=== PATIENT | male | born 1945 | race Caucasian/White ===

== ENCOUNTER 2017-06-05 18:03 | Emergency (ER) | payer OTHER ==
[2017-06-05 18:12] VITALS: PULSE 89; RESP 16; TEMP 97.9
--- NOTE | 2017-06-05 19:01 | EDPHY ---
H & P Time Seen by Provider: 06/05/17 18:25 HPI/ROS: CHIEF COMPLAINT: Left leg pain/swelling HISTORY OF PRESENT ILLNESS: This patient is an anticoagulated (Xarelto) 71 y/o male with history of hypertension and atrial fibrillation complaining of pain and swelling in his left lower extremity onset Saturday. Initially, he felt he had a cramp in his leg. He developed swelling and worsening pain in that area over the last three days. Today, his pain is slightly relieved but his leg remains swollen with some associated redness. He denies headache, chest pain, shortness of breath, or other associated symptoms. He denies prior history of clotting. REVIEW OF SYSTEMS: A 10 point review of systems was performed and is negative with the exception of the elements mentioned in the history of present illness. Past Medical/Surgical History: 1. Hypertension 2. Atrial fibrillation Social History: . Lives in [place]. Retired. Nonsmoker. PCP Dr. Luna. Smoking Status: Never smoked Physical Exam: General Appearance: Alert, no distress Eyes: Pupils equal and round, no conjunctival pallor or injection ENT, Mouth: Mucous membranes moist Neck: Normal inspection Respiratory: Lungs are clear to auscultation Cardiovascular: Regular rate and rhythm Gastrointestinal: Abdomen is soft and non- tender Neurological: A&O, nonfocal, normal gait Skin: Warm and dry, no rash Extremities: Diffuse swelling, faint erythema and warmth to anterior aspect of LLE below the knee. 2+ dorsalis pedis pulse. Psychiatric: Mood and affect normal Constitutional: Initial Vital Signs Temperature (C) 36.6 C 06/05/17 18:09 Heart Rate 89 06/05/17 18:09 Respiratory Rate 16 06/05/17 18:09 Blood Pressure 155/109 H 06/05/17 18:09 O2 Sat (%) 95 06/05/17 18:09 O2 Delivery Mode Room Air Allergies/Adverse Reactions: Penicillins Allergy (Verified 01/18/12 10:13) Rash Home Medications: Medication Instructions Recorded Hydrochlorothiazide [HCTZ (*)] 25 mg PO 09/14/10 Aspirin [Aspirin 81mg (OTC)] 81 mg PO DAILY 01/18/12 Atenolol [Tenormin 100 mg (RX)] 100 mg PO DAILY 01/18/12 Dyasterude 0.5mgdaily 01/18/12 Indomethacin 1 cap PO TID #9 cap 01/18/12 Rivaroxaban [Xarelto] 20 mg PO 01/18/12 Cephalexin [Keflex (*)] 500 mg PO TID #30 cap 06/05/17 Medical Decision Making - Diagnostics Imaging Results: Imaging Impressions Extremity Venous Study 06/05/17 18:25 Impression: There is no sonographic evidence of deep or superficial vein thrombosis in the left lower extremity. Findings were discussed with PERLA GERMAIN MD at 19:50, on 06/05/2017. Imaging: Discussed imaging studies w/ weight caller Radiologist ED Course/Re-evaluation: Anticoagulated 71 y/o male presents with four day history of LLE pain and swelling. Exam reveals diffuse swelling, faint erythema and warmth to anterior aspect of LLE below the knee. 2+ dorsalis pedis pulse. Plan for US LLE to r/o DVT. 19:[address] Rosas, radiologist. US LLE negative for DVT. Reassessed patient. Discussed US results. Likely muscular strain with bleeding within the muscle and resultant swelling. Concern for cellulitis b/c of faint erythema. Plan to d/c home in good condition with prescription for Keflex. He will follow up with his PCP, Dr. Luna, this week. Return precautinos discussed. The patient is comfortable with this plan. Differential Diagnosis: Differential diagnosis includes though it is not limited to DVT, cellulitis, osteomyelitis, tendon disruption, neurovascular compromise. Departure - Departure Disposition: Home, Routine, Self-Care Clinical Impression: Cellulitis of left lower extremity Condition: Good Instructions: Cellulitis (ED), Muscle Strain (ED) Additional Instructions: 1. Follow up with Dr. Luna on Saturday. 2. Take Keflex as prescribed. Keep your leg elevated whenever possible. 3. Return to the emergency department for increased redness, warmth, swelling, or discharge from your leg or if you develop fever, vomiting, chest pain, shortness of breath, or other worsening of condition. Referrals: Bernardino Luna MD [Primary Care Provider] - As per Instructions Prescriptions: Cephalexin [Keflex (*)] 500 mg PO TID #30 cap Report Scribed for: Perla Germain Report Scribed by: Avani Mera Date of Report: 06/05/17 Time of Report: 19:01 Physician Review and Approval Statement: 06/05/17 19:01 Portions of this note were transcribed by a medical billing associate. I personally performed a history, physical exam, medical decision making, and confirmed accuracy of information the transcribed note.
[2017-06-05 20:10] VITALS: BP 160/114; O2SAT 94
== END 2017-06-05 20:08 | disposition home or self-care (01) ==
DX: L03.116 Cellulitis of left lower limb (principal); I10 Essential (primary) hypertension; Z79.82 Long term (current) use of aspirin

== ENCOUNTER 2018-08-21 06:01 | Emergency (ER) | payer OTHER ==
[2018-08-21 06:07] VITALS: BP 129/83
--- NOTE | 2018-08-21 06:20 | EDPHY ---
H & P Stated Complaint: L upper thigh/calf swelling x2days, pain when moving Time Seen by Provider: 08/21/18 06:08 HPI/ROS: Chief Complaint: Left posterior thigh pain HPI: 73-year-old male with a history of atrial fibrillation, on Xarelto, has had 2 days of pain in the back of his left thigh. Patient noted a firm lump in that area and concerned about a possible blood clot. He has been completely compliant with his usual Xarelto. He does state that he exercises regularly and may have pulled a muscle in that area. No circumferential swelling. No lower leg swelling. No numbness or weakness. No discoloration. Does not feel cold. He is ambulating without difficulty. No chest pain shortness of breath or palpitations. ROS: 10 systems were reviewed and were negative except those elements noted in the HPI. PMH: Hypertension, atrial fibrillation, on Xarelto Social History: No smoking, no alcohol, no recreational drug use Family History: non-contributory Physical Exam: Gen: Awake, Alert, No Distress HEENT: Nose: no rhinorrhea Eyes: PERRLA, EOMI Mouth: Moist mucosa Neck: Supple, no JVD Chest: nontender, lungs clear to auscultation Heart: S1, S2 normal, no murmur Abd: Soft, non-tender, no guarding Back: no CVA tenderness, no midline tenderness Ext: no edema, patient has a palpable localized hematoma in his posterior hamstring muscles approximately 10 x 5 cm. Is mildly tender to the touch. There is no surrounding edema. There is no overlying erythema. The remainder of his leg is normal. 2+ dorsalis pedis pulses. Sensations intact distally. Capillary refills less than 2 sec. Skin: no rash Neuro: CN II-XII intact, Sensation grossly intact, Strength 5/5 in bilateral upper and lower extremities - Personal History Current Tetanus Diphtheria and Acellular Pertussis (TDAP): Yes - Medical/Surgical History Hx Asthma: No Hx Chronic Respiratory Disease: No Hx Diabetes: No Hx Cardiac Disease: Yes Hx Renal Disease: No Hx Cirrhosis: No Hx Alcoholism: No Hx HIV/AIDS: No Hx Splenectomy or Spleen Trauma: No Other PMH: HTN. A-fib. - Social History Smoking Status: Never smoked Constitutional: Initial Vital Signs Temperature (C) 36.8 C 08/21/18 06:05 Heart Rate 69 08/21/18 06:05 Respiratory Rate 17 08/21/18 06:05 Blood Pressure 129/83 H 08/21/18 06:05 O2 Sat (%) 95 08/21/18 06:05 O2 Delivery Mode Room Air Allergies/Adverse Reactions: Penicillins Allergy (Verified 08/21/18 06:03) Rash Home Medications: Medication Instructions Recorded Hydrochlorothiazide [HCTZ (*)] 25 mg PO 09/14/10 Aspirin [Aspirin 81mg (OTC)] 81 mg PO DAILY 01/18/12 Atenolol [Tenormin 100 mg (RX)] 100 mg PO DAILY 01/18/12 Dyasterude 0.5mgdaily 01/18/12 Rivaroxaban [Xarelto] 20 mg PO 01/18/12 Medical Decision Making ED Course/Re-evaluation: 73-year-old male presenting with a left posterior thigh hematoma likely secondary to a mild muscle tear and his Xarelto. He has no clinical findings suggestive of a DVT. There is no circumferential swelling. There is no swelling below the knee. He has normal perfusion. He has no risk factors for DVT and is anticoagulated making this very unlikely. Patient has been reassured. Vital signs are normal. Will discharge with ice, acetaminophen, follow up his physician in 4-5 days for recheck. Departure - Departure Disposition: Home, Routine, Self-Care Clinical Impression: Hematoma Condition: Good Instructions: Hematoma (ED) Additional Instructions: You may apply ice to the affected area. May take Tylenol as needed for pain. Follow up with primary care physician in 4-5 days for further evaluation. Return to the emergency department for increasing swelling, redness, worsening pain, chest pain, shortness of breath, or any other concerns. Referrals: Bernardino Luna MD [Primary Care Provider] - As per Instructions
== END 2018-08-21 06:30 | disposition home or self-care (01) ==
DX: M79.81 Nontraumatic hematoma of soft tissue (principal); I48.91 Unspecified atrial fibrillation; I10 Essential (primary) hypertension; Z79.01 Long term (current) use of anticoagulants

== ENCOUNTER 2018-08-30 21:19 | Observation (INO) | payer OTHER ==
[2018-08-30] MEDS ORDERED: NS 1,000 ML IV ONE (21:42)
--- NOTE | 2018-08-30 21:43 | EDPHY ---
H & P Stated Complaint: near syncope-head lac Source: Patient - Personal History Current Tetanus Diphtheria and Acellular Pertussis (TDAP): Yes - Medical/Surgical History Hx Asthma: No Hx Chronic Respiratory Disease: No Hx Diabetes: No Hx Cardiac Disease: Yes Hx Renal Disease: No Hx Cirrhosis: No Hx Alcoholism: No Hx HIV/AIDS: No Hx Splenectomy or Spleen Trauma: No Other PMH: HTN. A-fib. - Social History Smoking Status: Never smoked Time Seen by Provider: 08/30/18 21:42 HPI/ROS: HPI CHIEF COMPLAINT: Syncope. HISTORY OF PRESENT ILLNESS: This patient is a 73-year-old male, he has a history of AFib on Xarelto, hypertension and BPH, he presents emergency room after he had a syncopal episode sustaining a fall with a left eyebrow laceration. Patient states he was stand at his bathroom counter sorting his pills. He all the sudden got lightheaded. Denies any chest pain or shortness of breath denies pleuritic pain. States he felt very lightheaded like he is going to pass out he sat down on a stool. He then had a syncopal episode falling forward striking his head on the ground. Positive LOC. He arrives to the emergency room alert and oriented x4, GCS 15. Denies any complaints at this time. Past Medical History: AFib on Xarelto, hypertension, BPH. Past Surgical History: Denies recent surgical history Social History: Denies daily drugs, alcohol daily tobacco, did have 1 glass of wine tonight. Family History: Noncontributory ROS REVIEW OF SYSTEMS: 10 Systems were reviewed and negative with the exception of the elements mentioned in the history of present illness. Exam Constitutional elderly, nontoxic triage nursing summary reviewed, vital signs reviewed, awake/alert. Eyes normal conjunctivae and sclera, EOMI, PERRLA. HENT head and neck: Left eyebrow laceration 3 cm, otherwise atraumatic on exam , no midline cervical spine pain or step-offs or crepitus, moist mucus membranes , no epistaxis, neck supple/ no meningismus, no raccoon eyes. Respiratory clear to auscultation bilaterally, normal breath sounds, no respiratory distress, no wheezing. Cardiovascular rate normal, regular rhythm, no murmur, no edema, distal pulses normal. Gastrointestinal soft, non-tender, no rebound, no guarding, normal bowel sounds, no distension, no pulsatile mass. Genitourinary no CVA tenderness. Musculoskeletal no midline vertebral tenderness, full range of motion, no calf swelling, no tenderness of extremities, no meningismus, good pulses, neurovascularly intact. Skin pink, warm, & dry, no rash, skin atraumatic. Neurologic awake, alert and oriented x 3, AAOx3, moves all 4 extremities equally, motor intact, sensory intact, CN II-XII intact, normal cerebellar, normal vision, normal speech. Psychiatric normal mood/affect. Heme/Lymph/Immune no lymphadenopathy. Differential Diagnosis: Includes but is not limited to in a particular order vasovagal syncope, orthostatic syncope, dehydration, electrolyte disturbance, cardiac arrhythmia, ACS, PE Medical Decision Making: Plan for this patient IV establishment IV fluid bolus , EKG, troponin, chest x-ray, CT scan head without contrast due to trauma and head laceration. Re-evaluation: EKG interpretation by me on record in [employer] system. Impression time of EKG 2241 AFib rate of 66, abnormal T-wave inversions in V4 V5 V6. When I compare this to his old EKG dated 07/04/2010 similar all in morphology. T-waves are previously seen. Chest x-ray one view: Cardiomegaly. Otherwise negative acute intrathoracic pathology interpreted by myself. CT scan head without contrast negative for acute traumatic injury called to me by Dr. Webb. 1210: Patient has a positive D-dimer in the setting of syncope will proceed with CT angiogram of the chest rule out PE. Additionally the patient had syncope with lightheadedness sustaining a head laceration be admitted overnight for syncope. I will ask the hospitalist service to admit. 1214: Updated patient on results. He has a positive D-dimer. He agrees for CT angiogram of the chest in the setting of positive D-dimer and syncope. The patient's EKG is stable from his previous EKGs. Additionally troponin negative. He does not have any chest pain. Patient agrees for hospital admission for syncope. 1217AM: Spoke with hospalist service. Dr. Penny Agrees to admit. CT angiogram of the chest obtained due to positive D-dimer and syncope, this was faxed me by direct Radiology at 12:52 a.m. This shows no pulmonary embolism Cardiomegaly with ill-defined hypodensity a left atrial appendage may represent not opacified blood versus less likely thrombus. Left upper lobe 7 mm solid pulmonary nodule recommend follow-up CT scan 3-6 months Multiple hypodensities in the liver that are indeterminate but likely represent simple cyst. (Yahir Botello) Constitutional: Initial Vital Signs Temperature (C) 36.4 C 08/30/18 21:29 Heart Rate 83 08/30/18 21:29 Respiratory Rate 16 08/30/18 21:29 Blood Pressure 99/68 L 08/30/18 21:29 O2 Sat (%) 96 08/30/18 21:29 O2 Delivery Mode Room Air Allergies/Adverse Reactions: Penicillins Allergy (Verified 08/30/18 21:27) Rash Home Medications: Medication Instructions Recorded Hydrochlorothiazide [HCTZ (*)] 25 mg PO DAILY@09/14/10 Aspirin [Aspirin 81mg (OTC)] 81 mg PO DAILY@01/18/12 Atenolol [Tenormin 100 mg (RX)] 100 mg PO DAILY@01/18/12 Dutasteride [Avodart 0.5 MG (*)] 0.5 mg PO DAILY@01/18/12 Rivaroxaban [Xarelto] 20 mg PO DAILY@01/18/12 Atorvastatin Calcium [Lipitor 40 40 mg PO DAILY@08/30/18 mg (*)] Medical Decision Making - Diagnostics Imaging Results: Imaging Impressions Chest/Thorax CTA 08/31/18 00:09 Impression: 1. No evidence of pulmonary embolic disease. 2. Mild dilatation of the a sending aorta. 3. Cardiac enlargement as well as prominence of the left atrial appendage which equivocally may contain thrombus. This could be further assessed with echocardiography as clinically directed. 4. See above report for additional findings. The study was performed as an emergency on-call case and a preliminary report was conveyed to the Emergency Department. The final interpretation is concordant with the original communication. [facility] Procedures: Procedure: Laceration repair with tissue adhesive At the e request and supervision of Dr. Yahir Botello wound closure was performed. Verbal consent was obtained from the patient. The 1.5 cm laceration on the left lateral eyebrow. The wound was scrubbed and explored to its base with a gloved finger. No foreign body seen, no foreign bodies palpated. There were no deep structures involved. The wound was repaired with tissue adhesive. The procedure was performed by myself. Patient has been informed that scarring will occur, although efforts have been made to minimize this. (Suyapa Vo) - Data Points Laboratory Results: Laboratory Results 08/30/18 21:56 08/30/18 21:56 Medications Given: Aspirin (Aspirin) 81 mg PO DAILY@19 [facility] Stop: 02/27/19 18:59 Last Admin: 08/31/18 19:56 Dose: 81 mg Atenolol (Tenormin) 100 mg PO DAILY@19 [facility] Stop: 02/27/19 18:59 Last Admin: 08/31/18 19:56 Dose: 100 mg Atorvastatin Calcium (Lipitor) 40 mg PO DAILY@19 [facility] Stop: 02/27/19 18:59 Last Admin: 08/31/18 19:56 Dose: 40 mg Dutasteride (Avodart) 0.5 mg PO DAILY@19 [facility] Stop: 02/27/19 18:59 Last Admin: 08/31/18 19:56 Dose: 0.5 mg Hydrochlorothiazide (Hydrochlorothiazide) 25 mg PO DAILY@19 [facility] Stop: 02/27/19 18:59 Last Admin: 08/31/18 19:56 Dose: 25 mg Rivaroxaban (Xarelto) 20 mg PO DAILY@19 [facility] Stop: 02/27/19 18:59 Last Admin: 08/31/18 19:56 Dose: 20 mg Discontinued Medications Sodium Chloride (Ns) 1,000 mls @ 0 mls/hr IV EDNOW ONE; Wide Open PRN Reason: Protocol Stop: 08/30/18 21:43 Last Admin: 08/30/18 22:05 Dose: 1,000 mls Point of Care Test Results: Chemistry 08/30/18 21:54 POC Troponin I 0.01 ng/mL ng/mL (0.00-0.08) Departure - Departure Disposition: [facility] Acute Clinical Impression: Pulmonary nodule Syncope Qualifiers: Syncope type: unspecified Qualified Code(s): R55 - Syncope and collapse Laceration of head Qualifiers: Encounter type: initial encounter Location of open wound of head: periocular area Foreign body presence: without foreign body Laterality: left Qualified Code (s): S01.112A - Laceration without foreign body of left eyelid and periocular area, initial encounter Condition: Fair
[2018-08-30 22:03] LABS: PLATELET COUNT 203 10^3/uL (150-400)
[2018-08-30 22:12] LABS: INR 1.64 (0.83-1.16); PROTIME(PATIENT) 18.7 SEC (12.0-15.0)
[2018-08-31] MEDS ORDERED: IOPAMIDOL (ISOVUE 370) 100 ML BTL IV ONE (00:13)
[2018-08-31] MEDS ORDERED: ONDANSETRON DISINTEGRATING 4 MG TAB PO PRN (00:17)
[2018-08-31] MEDS ORDERED: ACETAMINOPHEN 325 MG TAB PO PRN (00:17)
[2018-08-31] MEDS ORDERED: ONDANSETRON 4 MG/2 ML VIAL IVP PRN (00:17)
--- NOTE | 2018-08-31 04:14 | PDGENHP ---
History and Physical - Chief Complaint Syncope - History of Present Illness 73 yo M w/ hx of CAD and AF presents after syncopal event. The patient was standing in the bathroom after having a large meal counting out his pills for the week. He felt a bit lightheaded and shortly after suffered a syncopal episode, hitting his head. He is no Xarelto for anticoagulation. He denies chest pain, SOB, or palpitations. He returned to baseline mental status quickly and tried to go to bed. However, once his heard of the event she convinced him to go to the ED for evaluation. In the ED his initial evaluation is mostly unremarkable aside from rate controlled Afib. He is now asymptomatic. CTPE was negative for PE but did demonstrates density in the LA of unclear significance. Case discussed with ED physician Marti; records reviewed and summarized above. History Information - Allergies/Home Medication List Allergies/Adverse Reactions: Penicillins Allergy (Verified 08/30/18 21:27) Rash Home Medications: Hydrochlorothiazide [HCTZ (*)] 25 mg PO 09/14/10 [Last Taken Unknown] Aspirin [Aspirin 81mg (OTC)] 81 mg PO DAILY 01/18/12 [Last Taken Unknown] Atenolol [Tenormin 100 mg (RX)] 100 mg PO DAILY 01/18/12 [Last Taken Unknown] Dyasterude 0.5mgdaily 01/18/12 [Last Taken Unknown] Rivaroxaban [Xarelto] 20 mg PO 01/18/12 [Last Taken Unknown] Statin 08/30/18 [Last Taken Unknown] I have personally reviewed and updated: family history, medical history - Past Medical History atrial fibrillation, coronary artery disease - Surgical History Reports: coronary stent - Family History Additional family history: Parents - Social History Smoking Status: Never smoked Review of Systems Review of Systems: ROS: 10pt was reviewed & negative except for what was stated in HPI & below Physical Exam Physical Exam: Temp Pulse Resp BP Pulse Ox 36.6 C 78 18 137/93 H 98 08/31/18 01:33 08/31/18 01:33 08/31/18 01:33 08/31/18 01:33 08/31/18 01:33 Constitutional: no apparent distress, not in pain Eyes: PERRL, EOMI Ears, Nose, Mouth, Throat: moist mucous membranes, no oral mucosal ulcers Cardiovascular: no murmur, rub, or gallop, irregularly irregular Respiratory: no respiratory distress, clear to auscultation Gastrointestinal: normoactive bowel sounds, soft, non-tender abdomen Skin: warm, normal color, other (Frontal laceration) Musculoskeletal: full muscle strength, no muscle tenderness Neurologic: AAOx3, CN II-XII Intact Psychiatric: interacting appropriately, not anxious Lab Data & Imaging Review 08/31/18 04:08 08/31/18 04:08 WBC 4.77 10^3/uL (3.80-9.50) 08/30/18 21:56 RBC 4.86 10^6/uL (4.40-6.38) 08/30/18 21:56 Hgb 14.2 g/dL (13.7-17.5) 08/30/18 21:56 Hct 42.5 % (40.0-51.0) 08/30/18 21:56 MCV 87.4 fL (81.5-99.8) 08/30/18 21:56 MCH 29.2 pg (27.9-34.1) 08/30/18 21:56 MCHC 33.4 g/dL (32.4-36.7) 08/30/18 21:56 RDW 14.9 % (11.5-15.2) 08/30/18 21:56 Plt Count 203 10^3/uL (150-400) 08/30/18 21:56 MPV 10.2 fL (8.7-11.7) 08/30/18 21:56 Neut % (Auto) 68.5 % (39.3-74.2) 08/30/18 21:56 Lymph % (Auto) 18.0 % (15.0-45.0) 08/30/18 21:56 Grand % (Auto) 9.6 % (4.5-13.0) 08/30/18 21:56 Eos % (Auto) 2.9 % (0.6-7.6) 08/30/18 21:56 Baso % (Auto) 0.6 % (0.3-1.7) 08/30/18 21:56 Nucleat RBC Rel Count 0.0 % (0.0-0.2) 08/30/18 21:56 Absolute Neuts (auto) 3.26 10^3/uL (1.70-6.50) 08/30/18 21:56 Absolute Lymphs (auto) 0.86 10^3/uL (1.00-3.00) L 08/30/18 21:56 Absolute Monos (auto) 0.46 10^3/uL (0.30-0.80) 08/30/18 21:56 Absolute Eos (auto) 0.14 10^3/uL (0.03-0.40) 08/30/18 21:56 Absolute Basos (auto) 0.03 10^3/uL (0.02-0.10) 08/30/18 21:56 Absolute Nucleated RBC 0.00 10^3/uL (0-0.01) 08/30/18 21:56 Immature Gran % 0.4 % (0.0-1.1) 08/30/18 21:56 Immature Gran # 0.02 10^3/uL (0.00-0.10) 08/30/18 21:56 PT 18.7 SEC (12.0-15.0) H 08/30/18 21:56 INR 1.64 (0.83-1.16) H 08/30/18 21:56 APTT 34.4 SEC (23.0-38.0) 08/30/18 21:56 D-Dimer 0.64 ug/mLFEU (0.00-0.50) H 08/30/18 21:56 Sodium 138 mEq/L (135-145) 08/30/18 21:56 Potassium 4.0 mEq/L (3.5-5.2) 08/30/18 21:56 Chloride 102 mEq/L (97-110) 08/30/18 21:56 Carbon Dioxide 26 mEq/l (22-31) 08/30/18 21:56 Anion Gap 10 mEq/L (6-14) 08/30/18 21:56 BUN 21 mg/dL (7-23) 08/30/18 21:56 Creatinine 1.0 mg/dL (0.7-1.3) 08/30/18 21:56 Estimated GFR > 60 08/30/18 21:56 Glucose 118 mg/dL (70-100) H 08/30/18 21:56 Calcium 9.2 mg/dL (8.5-10.4) 08/30/18 21:56 Magnesium 1.9 mg/dL (1.6-2.3) 08/30/18 21:56 POC Troponin I 0.01 ng/mL (0.00-0.08) 08/30/18 21:54 NT-Pro-B Natriuret Pep 1360 pg/mL (0-450) H 08/30/18 21:56 Imaging Review: Imaging Impressions Chest X-Ray 08/30/18 21:43 Impression: 1. Cardiomegaly may reflect low-grade congestive failure without ibis pulmonary edema. 2. See above report for additional findings. Head CT 08/30/18 21:50 Impression: 1. Negative for post traumatic hemorrhage. 2. Elderly brain with atrophy and probable white matter small vessel disease. 3. See above report for additional findings. Results called and discussed with Yahir Botello MD on 08/30/2018 at 23:46. Visualized and Interpreted EKG results: Yes EKG Interpretation: Positive for: other (Atrial fibrillation), T waves inversion (Lateral leads) Assessment & Plan Assessment: 73 yo M w/ hx of AF and CAD presents after syncopal event. Plan: 1. Syncope - Unclear etiology; possibly vasovagal after eating a large meal. He denies chest pain, SOB, or palpitations. CTPE negative for PE but does demonstrate density in LA; unclear if this is related. - Observe in PCU - Monitor on telemetry - Check orthostatic VS - Will obtain TTE 2. LA hypodensity - May represent thrombus although patient is anticoagulated with Xarelto for history of AF. No focal neurologic findings on history or exam. - TTE ordered 3. AF - On atenolol and Xarelto as an outpatient. - Continue home medications pending reconciliation 4. CAD - S/p stent to LAD in 2010. - Continue home medications Diet - Regular Code - Full Ppx - Xarelto Dispo - Admit under observation status
[2018-08-31 04:32] LABS: PLATELET COUNT 187 10^3/uL (150-400)
--- NOTE | 2018-08-31 12:07 | ASMTCMCOM ---
CM Note CM Note Notes: Pt is a 73 yo M who presented after a syncopal episode at home. Pt care discussed in rounds, pt has echo pending. Dr West is pt's financial analysis advisor and is consulted. Discharge needs TBD at this time. CM available. Date Signed: 08/31/2018 12:06 PM Electronically Signed By:TRACI Pires
--- NOTE | 2018-08-31 15:04 | HOSPPROG ---
Hospitalist Progress Note Assessment/Plan: 73 yo M w/ hx of AF and CAD presents after syncopal event. Plan: 1. Syncope - Unclear etiology; possibly vasovagal after eating a large meal. He denies chest pain, SOB, or palpitations. CTPE negative for PE but does demonstrate density in LA; unclear if this is related. - Observe in PCU - Monitor on telemetry - Check orthostatic VS - Will obtain TTE - Consulted Cardiology, Dr. Pena, his primary drop forge operator, this AM for evaluation, set up for 30 day monitor after discharge 2. LA hypodensity - May represent thrombus although patient is anticoagulated with Xarelto for history of AF. No focal neurologic findings on history or exam. - TTE ordered 3. AF - On atenolol and Xarelto as an outpatient. - Continue home medications 4. CAD - S/p stent to LAD in 2010. - Continue home medications Diet - Regular Code - Full Ppx - Xarelto Dispo - Admit under observation status Subjective: Patient reports some LH this morning after breakfast Objective: Vital Signs Temp Pulse Resp BP Pulse Ox 36.7 C 76 16 108/76 96 08/31/18 11:34 08/31/18 11:34 08/31/18 11:34 08/31/18 11:34 08/31/18 11:34 Laboratory Results 08/31/18 04:08 08/31/18 04:08 08/30/18 08/31/18 09/01/18 04:59 05:59 05:59 Intake Total Balance PT 18.7 SEC (12.0-15.0) H 08/30/18 21:56 INR 1.64 (0.83-1.16) H 08/30/18 21:56 - Physical Exam Constitutional: no apparent distress Eyes: PERRL Ears, Nose, Mouth, Throat: moist mucous membranes Cardiovascular: irregularly irregular Respiratory: no respiratory distress Gastrointestinal: normoactive bowel sounds Musculoskeletal: full muscle strength Neurologic: AAOx3 Psychiatric: interacting appropriately ICD10 Worksheet Patient Problems: Problems Problem Status Onset Laceration of head Acute Pulmonary nodule Acute Syncope Acute
--- NOTE | 2018-08-31 18:31 | ECHO ---
[email or web address] [address] [address] Main: [phone] Echocardiography Examination Transthoracic Name: OPAL ALVAREZ MR#: [id number] Study Date: 08/31/2018 Study Time: 01:06 PM Date of : 1945 Age: 73 year(s) Height: 180.3 cm (71 in.) Weight: 86.18 kg (190 lb.) BSA: 2.06 m2 Gender: Male Examination: Indication: Syncope/question LA thrombus Image Quality: Adequate Contrast: Requested by: ?? BP: 108 mmHg/76 mmHg Heart Rate: Rhythm: Indication: Syncope/question LA thrombus Procedure Staff Referring Physician: Quality Control Tester: Gita Avila RDCS Reading Physician: Sammy Pena MD Requesting Provider: Indication: Syncope/question LA thrombus Measurements Chambers AV/MV Label Value Normal Value Label Value Normal Value EF lower range (%) 60 % AV PGmean 3 mmHg EF upper range (%) 65 % MV A Vmax 0.2 m/s IVSd, 2D 1.3 cm (0.6cm - 1.1cm) MV E' lateral 0.1 m/s LVDd, 2D 3.9 cm (4.2cm - 5.9cm) MV E' mean 0.09 m/s LVDs, 2D 2.6 cm (2.1cm - 4cm) MV E' septal 0.08 m/s LVEF, 2D 62 % (54% - 74%) MV E Vmax 0.95 m/s LVEF, BP 74 % (55% - 70%) MV E/A 4.75 LVEF, MOD2 80 % (55% - 70%) MV E/E' lateral 10 LVEF, MOD4 68 % (55% - 70%) MV E/E' mean 10.56 LVPWd, 2D 1.3 cm (0.6cm - 1cm) MV E/E' septal 12.7 (0.45 - 1.25) LA Area, A2C 41.6 cm2 (0cm2 - 20cm2) TV/PV LA Volume, A2C 174 ml (18ml - 58ml) Label Value Normal Value LADs, 2D 5.2 cm (3cm - 4cm) RA Pressure 5 mmHg Additional Vessels RVSP 36 mmHg Label Value Normal Value TR Pmax 31 mmHg AoAsc 4.3 cm TR Vmax 2.8 m/s AoRoot, MM 4.1 cm (2.2cm - 3.7cm) IVC 2 cm (1.2cm - 2.3cm) Patient: OPAL ALVAREZ Study Date: 08/31/2018 Page 1 of 3 01:06 PM Conclusions Left ventricular systolic ejection fraction was normal (60-65%) Mild concentric LVH was noted Patient was in atrial fib/flutter over course of this study RV size and function were normal Severe LAE with mod/severe VENU Mild MR with mild MAC Trileaflet aortic valve with mild insufficiency Mild TR with RVSP of 35-40 mm Hg Mild PI Mild dilation of the ascending aorta (4.3 cm) Findings Left Ventricle: Left ventricle is normal in size. Normal global systolic left ventricular function. EF range is estimated at 60 % - 65 %. There is mild concentric left ventricular hypertrophy. There is no regional wall motion abnormalities. Unable to assess Diastolic Dysfunction due to atrial fibrillation/a flutter. IVS: The septum is intact. Right Ventricle: Normal size right ventricle. Right ventricular wall thickness is normal. Right ventricular systolic function is normal. Left Atrium: The left atrium is severely dilated. IAS: Normal appearing atrial septum. Right Atrium: The right atrium is moderately to severely dilated. Mitral Valve: Mild mitral regurgitation. No mitral valve stenosis. There is mitral annular calcification. Aortic Valve: Mild aortic regurgitation is present. There is no aortic stenosis. Aortic leaflets exhibit mild calcification. The aortic valve is trileaflet. Tricuspid Valve: Tricuspid valve leaflets are normal in appearance and function. Mild tricuspid regurgitation. No tricuspid valve stenosis. Right Ventricular systolic pressure is measured at 36 mmHg. Pulmonary artery pressure normal. Pulmonic Valve: Pulmonic leaflets exhibit normal cuspal separation. Mild pulmonic valve regurgitation is present. There is no pulmonic valve stenosis. Aorta: The aorta is normal. The aortic root size in M-mode measures 4.1 cm. The ascending aorta measures 4.3 cm. Mild dilatation of the ascending aorta. Aorta Measurements AoRoot, MM is 4.1 cm. Pulmonary Artery: The pulmonary artery morphology appears normal. IVC: The inferior vena cava is normal in size and course. Pericardium: A pericardial fat pad is present. No pericardial effusion. No pleural effusion present. Exam Details Procedure Status: Routine study Image Quality: Adequate Patient: OPAL ALVAREZ Study Date: 08/31/2018 Page 2 of 3 01:06 PM Facility Location: Cardiac Echo 1 (No Signature Object) Patient: OPAL ALVAREZ Study Date: 08/31/2018 Page 3 of 3 01:06 PM [id number]
[2018-08-31] MEDS ORDERED: HYDROCHLOROTHIAZIDE 25 MG TAB PO SCH (19:00)
[2018-08-31] MEDS ORDERED: ATORVASTATIN CALCIUM 40 MG TAB PO SCH (19:00)
[2018-08-31] MEDS ORDERED: ATENOLOL 100 MG TAB PO SCH (19:00)
[2018-08-31] MEDS ORDERED: DUTASTERIDE 0.5 MG CAP PO SCH (19:00)
[2018-08-31] MEDS ORDERED: ASPIRIN 81 MG CHEWABLE TAB PO SCH (19:00)
[2018-08-31] MEDS ORDERED: RIVAROXABAN 20 MG TAB PO SCH (19:00)
--- NOTE | 2018-08-31 19:45 | PDCARPN ---
Cardiology Progress Note Chief Complaint: Syncope Assessment/Plan: Assessment: Patient is a 73 y/o male, known to me in the outpatient setting, with history of atrial fibrillation (on Xarelto with [id number] score of 3), CAD s/p PCI to LAD (2010 with two stents) and HTN, who presents to [facility] after unprovoked syncopal event last night. Patient noted dizziness prior to the event and was able, without difficulty to walk from bathroom to bed and sit down (with all these details being recalled). What he did not recall was after sitting down, passing out. Dizziness as possible prodrome, but there was time and action between when symptoms were noted and the event. No symptoms similar in the past. Dizziness was noted this morning, while in house, on monitor, with telemetry revealing ongoing atrial fibrillation (no faster or slower than prior to the event). Patient did not appreciate any change in rhythm - no fast or slow beats were noted. Regular and routine exercise has been without any limitations or symptoms (cardiac related), but recent left lower extremity hamstring issue has slowed the intensity and frequency of exercise. Compliance with prescribed medications has been good. Patient "...ate a large meal..." prior to the event, but from the sounds of this, this is a typical Sat night. Given elevated D-dimer, CT rule out PE was performed, and there was questionable haziness to the left atrial appendage (patient, once again, has been on uninterrupted Xarelto). Echocardiography with normal LVEF and wall motion. Severe LAE was noted, but no significant valve pathology was noted. At present the patient is resting comfortably. was at bedside. Plan: Would maintain therapy on Xarelto for the history of atrial fibrillation (and awareness that he is in this rhythm consistently) Would arrange for outpatient Preventice monitor (patient to call the [facility] office tomorrow) Continue therapy on ASA (81 mg per day) given CAD with PCI history Atenolol and HCTZ should continue for HTN history Statins to continue with HLP, and maintain annual assessment of cholesterol and LFTs Patient does NOT have an indication for PPM (class III) without any etiology of note. Aware that the patient has atrial fibrillation, but no jessica or tachycardia around this diagnosis has been noted (in outpatient, or with 18 hours on telemetry). Subjective: No cardiovascular complaints Reviewed/Discussed With: family Objective: Vital Signs (8 Hrs) Temp Pulse Resp BP Pulse Ox 08/31/18 15:40 36.7 C 73 16 113/80 95 08/31/18 11:34 36.7 C 76 16 108/76 96 Intake/Output (24 Hrs) 08/30/18 08/31/18 09/01/18 04:59 05:59 05:59 Intake Total 580 Balance 580 Intake: Oral (ml) 580 IV Infused (ml) Other: Weight Number of Voids Toilet 3 Result Diagrams: 08/31/18 04:08 08/31/18 04:08 EKG: atrial fibrillation Telemetry: atrial fibrillation (with controlled ventricular response) Echocardiogram: Normal LVEF with severe LAE. No clear valve pathology was noted - Physical Exam Constitutional: WDWN, healthy appearing, no apparent distress Eyes: PERRL, EOMI Ears, Nose, Mouth, Throat: moist mucous membranes Cardiovascular: irregularly irregular, No systolic murmur, No jugular vein distention, No pulses symmetric bilat Peripheral Pulses: 2+: dorsalis-pedis (R), dorsalis-pedis (L) Respiratory: clear to auscultate bilat, no crackles, no wheezes Gastrointestinal: normoactive bowel sounds Skin: no rashes, no edema Musculoskeletal: no muscular tenderness Neurologic: AAOx3, CN II-XII grossly intact Psychiatric: cooperative, interactive, following commands ICD10 Worksheet Patient Problems: Problems Problem Status Onset Laceration of head Acute Pulmonary nodule Acute Syncope Acute
[2018-08-31 20:07] VITALS: BP 112/77
--- NOTE | 2018-08-31 21:33 | PDDCSUM ---
Discharge Summary Discharge Summary: Patient was admitted after syncopal event at home 73 y/o male with history of CAD s/p PCI (LAD), HTN, HLP, and atrial fibrillation (on Xarelto), who presented to ER after syncopal event at home. In the ER, tele/ECG with ongoing atrial fibrillation (rates were controlled). Labs without elevation to troponin noted, but given elevation to d-dimer, the patient had CT to rule out PE (negative), but there was some question about left atrial haziness. Echocardiography with normal LVEF and wall motion. No clear valve pathology was noted. Severe dilation of the left atrium was noted. Given a fall at home, on DOAC therapy, a CT of head was also performed (no acute pathology was noted) BNP was noted to be elevated to 1360 (chronic atrial fibrillation likely etiology) Long discussion with the patient and this evening about options. Given the atrial fibrillation, cardiology does have some concerns about jessica and tachyarrhythmias, but while in house, on telemetry, neither of these were noted. Vasovagal syncope would be unlikely given some of the descriptors of the event ( noted symptoms, and the ability to get from bathroom to bed without difficulty, then ibis syncope was noted). Class III indication for PPM implant without further work up. No changes to medical therapy were undertaken Continue therapy on ASA (CAD/PCI history) Continue beta blockers and diuretics Xarelto for CVA prophylaxis with atrial fibrillation Lipitor for HLP should continue with annual assessment of cholesterol and LFTs Outpatient Preventice monitor to be set up Outpatient follow up with cardiology after formal read on the Preventice Should another of these events be noted, would have patient return to [facility], and would, at that time, consider LINQ and/or more accessible device for rapid and acute interrogation of arrhythmias. Patient and were in agreement with these plans
--- NOTE | 2018-09-04 07:53 | CPEKG ---
Test Reason : OPEN Blood Pressure : / mmHG Vent. Rate : 066 BPM Atrial Rate : 000 BPM P-R Int : 200 ms QRS Dur : 099 ms QT Int : 449 ms P-R-T Axes : 130 030 159 degrees QTc Int : 471 ms Atrial fibrillation Repol abnrm suggests ischemia, anterolateral Confirmed by Yahir Botello ([id number]) on 09/04/2018 7:52:37 AM Referred By: PHYSICIAN ED Confirmed By:Yahir Botello
== END 2018-08-31 20:30 | disposition home or self-care (01) ==
LOC: F2W 08-31 01:28
PROVIDERS: ADMIT Student in an Organized Health Care Education/Training Program; ATTEND Internal Medicine Cardiovascular Disease
PROC: 0HQ1XZZ Repair Face Skin, External Approach (ICD-10-PCS; principal; 2018-08-31)
DX: R55 Syncope and collapse (principal); S01.81XA Laceration without foreign body of other part of head, initial encounter; W19.XXXA Unspecified fall, initial encounter; Y92.012 Bathroom of single-family (private) house as the place of occurrence of the external cause; E86.9 Volume depletion, unspecified; I51.7 Cardiomegaly; R91.1 Solitary pulmonary nodule; I48.91 Unspecified atrial fibrillation; I25.10 Atherosclerotic heart disease of native coronary artery without angina pectoris; I10 Essential (primary) hypertension; E78.5 Hyperlipidemia, unspecified; N40.0 Benign prostatic hyperplasia without lower urinary tract symptoms; Z88.0 Allergy status to penicillin; Z79.01 Long term (current) use of anticoagulants; Z79.82 Long term (current) use of aspirin; Z95.5 Presence of coronary angioplasty implant and graft
CPT/HCPCS: 12011; 70450; 71045; 71275; 93306; 96360; 97116; 97161; 99285; G0378; Q9967; 84484-ER

== ENCOUNTER 2018-10-28 06:32 | Observation (INO) | payer OTHER ==
[2018-10-28] MEDS ORDERED: NS 1,000 ML IV ONE (06:36)
[2018-10-28] MEDS ORDERED: diphenhydrAMINE 25 MG CAP PO ONE ×2 (06:36→07:49)
[2018-10-28] MEDS ORDERED: FAMOTIDINE 20 MG TAB PO ONE (06:36)
[2018-10-28] MEDS ORDERED: DIAZEPAM 5 MG TAB PO ONE (06:36)
[2018-10-28] MEDS ORDERED: ASPIRIN EC 325 MG TAB PO ONE ×2 (06:36→07:49)
[2018-10-28 07:14] LABS: PLATELET COUNT 156 10^3/uL (150-400)
--- NOTE | 2018-10-28 07:14 | CPEKG ---
Test Reason : OPEN Blood Pressure : / mmHG Vent. Rate : 078 BPM Atrial Rate : 000 BPM P-R Int : 190 ms QRS Dur : 100 ms QT Int : 413 ms P-R-T Axes : 000 053 174 degrees QTc Int : 471 ms Atrial fibrillation Repol abnrm suggests ischemia, diffuse leads Confirmed by Tavo Duran ([id number]) on 10/28/2018 7:14:13 AM Referred By: Sammy Pena Confirmed By:Tavo Duran
[2018-10-28 07:23] LABS: INR 1.08 (0.83-1.16); PROTIME(PATIENT) 13.6 SEC (12.0-15.0)
[2018-10-28] MEDS ORDERED: FAMOTIDINE 20 MG TAB ONE (07:49)
[2018-10-28] MEDS ORDERED: DIAZEPAM 5 MG TAB ONE (07:50)
--- NOTE | 2018-10-28 08:30 | PDPROPOC ---
Sedation Plan of Care Sedation Plan of Care: vital signs stable, mental status noted, patient educated of risks, benefits, alternatives, patient can tolerate sedation ASA Classification: ASA 2 Planned drugs: fentanyl, midazolam Mallampati Score: Class 2 Mallampati Reference Image: Patient passed 3-3-2 rule?: Yes
--- NOTE | 2018-10-28 08:31 | PDHPUP ---
History & Physical Update H&P update statement: This history and physical update is based on an assessment of the patient which was completed after admission or registration (within 24 hours), but prior to the surgery/procedure. H&P update: H&P reviewed & patient examined, no change in patient's condition since H&P completed H&P changes: Patient with ventricular ectopy, and desire to ensure that CAD is not etiology.
[2018-10-28] MEDS ORDERED: fentaNYL 100 MCG/2 ML INJ ONE (08:32)
[2018-10-28] MEDS ORDERED: IOPAMIDOL (ISOVUE-370) 150 ML BTL IV ONE (08:32)
[2018-10-28] MEDS ORDERED: MIDAZOLAM 2 MG/2 ML VIAL ONE (08:32)
[2018-10-28] MEDS ORDERED: LIDOCAINE 1% 300 MG/30 ML SDV ONE (08:32)
[2018-10-28] MEDS ORDERED: BIVALIRUDIN 250 MG/5 ML VIAL IV ONE (09:24)
[2018-10-28] MEDS ORDERED: EPINEPHrine 1 MG/10 ML SYR IVP ONE (09:24)
--- NOTE | 2018-10-28 09:46 | PDDXCAT ---
Diagnostic Cath Note - . Date: 10/28/18 Cyber Defense Forensics Analyst: Jean Indication: other (VT on monitor with history of CAD and PCI - angiography to rule out ischaemia as cause.) - Procedure Access: right groin Procedure: left heart catheterization, coronary angiography, left ventriculogram - Materials Left Heart Cath size: 6F Left Heart Cath materials: standard multipack (JL4, JR4, pigtail), JL4.5 - Findings-Left Heart Catheterization LM: Short vessel with birfucation in to the LAD and LCX. No luminal irregularities were noted. LAD: Medium diameter vessel with stent in the mid vessel (just after D2). D1 and D2 are principal diagonals (that are visible). There is an occusion within the stented segment of 100%. Small left to left collaterals are present. Just proximal to the stent, there are irregularities noted (>60% stenosis). LCX: Small to medium diameter vessel with one principal OM. No significant luminal irregularities were noted. RCA: Medium diameter vessel with supply to the PDA and [place] (dominant vessel). There were 10% luminal irergularities in the proximal portion of the vessel, but no critical lesions identified. EDP: 16 mm Hg LVEF: 60% Wall motion: Inferoapical hypokinesis was noted Complications: none Estimated blood loss: <50ml Assessment: Patient is a 73 y/o male with history of CAD s/p PCI to the LAD ( 2010), HTN and atrial fibrillation (on Xarelto with [id number] score of 3) with occlusion of the LAD stent. Wall motion abnormalities noted, but no significant drop in overall systolic function noted. Plan: PCI to the LAD lesion to be attempted by Dr. Willie Grayson Intervention: mid LAD lesion Patient Problems: Problems Problem Status Onset Laceration of head Acute Pulmonary nodule Acute Syncope Acute
[2018-10-28] MEDS ORDERED: NITROGLYCERIN 1,500 MCG/15 ML VIAL MISC ONE (10:11)
[2018-10-28] MEDS ORDERED: CLOPIDOGREL BISULFATE 75 MG TAB ONE (10:35)
[2018-10-28] MEDS ORDERED: ONDANSETRON 4 MG/2 ML VIAL IVP PRN (10:43)
[2018-10-28] MEDS ORDERED: NITROGLYCERIN 0.4 MG BTL SL PRN (10:43)
[2018-10-28] MEDS ORDERED: ACETAMINOPHEN 325 MG TAB PO PRN (10:43)
[2018-10-28] MEDS ORDERED: TEMAZEPAM 15 MG CAP PO PRN (10:43)
[2018-10-28] MEDS ORDERED: CLOPIDOGREL BISULFATE 75 MG TAB PO ONE (10:43)
[2018-10-28] MEDS ORDERED: HYDROCODONE/APAP 5/325 TAB PO PRN (10:43)
[2018-10-28] MEDS ORDERED: ATROPINE SULFATE 1 MG/10 ML SYR IVP PRN (10:43)
[2018-10-28] MEDS ORDERED: NS 1,000 ML IV SCH (10:45)
--- NOTE | 2018-10-28 10:57 | PDDXCAT ---
Diagnostic Cath Note - . Date: 10/28/18 Freight Clerk: Kenan Indication: other (CAD and ventricular tachycardia.) - Procedure Access: right groin Procedure: other (PCI of the mid-LAD.) Complications: None Estimated blood loss: <50ml Closure method: Angioseal Assessment: Successful PCI of the mid-LAD using 2 drug coated stents. Intervention: Please refer to the diagnostic cardiac cath report by Dr. Sammy Pena. Briefly , Mr. Butt underwent cardiac catheterization because of a history of CAD with a prior PCI of the LAD performed in 2010 and nonsustained ventricular tachycardia. His diagnostic study demonstrated chronic total occlusion of the mid-LAD within the previously stented segment. He had noncritical disease in the circumflex and RCA. Left ventricular systolic function was preserved. Based on his clinical history and diagnostic angiography, the decision was made to perform PCI of the LAD. The patient received intravenous Angiomax. A 6 Nauruan CLS 4.0 guide catheter was advanced to the left main. A 2.0 x 12 mm Sprinter balloon and a long Band Leader 50 guidewire were advanced to the end of the guide catheter. The guidewire was passed into the mid LAD and the balloon was tracked behind it to provide support. The chronic total total occlusion was successfully crossed with guidewire followed by the balloon. The balloon was advanced distally and the guidewire was removed. A contrast injection through the central lumen of the balloon catheter demonstrated that it was intraluminal within the distal LAD. The guidewire was reinserted and the balloon will was withdrawn to the point of the chronic total occlusion. A series of inflations was performed. Angiography at this point demonstrated temple of SOHAM II-III flow. There was evidence of a high-grade stenosis distal to the previously stented segment. The Sprinter balloon was tracked to this position and a single inflation was performed. A 2.25 x 20 mm Synergy stent was advanced into the mid to distal LAD. It was deployed at high pressure. A 2.75 x 16 mm Synergy stent was then tracked into position overlapping with the first stent proximally. The 2nd stent was deployed at high pressure. An additional inflation was performed at the overlap segment. Final angiography demonstrated 0% residual stenosis and SOHAM-III flow. Patient Problems: Problems Problem Status Onset Laceration of head Acute Pulmonary nodule Acute Syncope Acute
--- NOTE | 2018-10-28 16:42 | CPEKG ---
Test Reason : OPEN Blood Pressure : / mmHG Vent. Rate : 074 BPM Atrial Rate : 000 BPM P-R Int : 159 ms QRS Dur : 098 ms QT Int : 428 ms P-R-T Axes : 000 066 209 degrees QTc Int : 475 ms Atrial fibrillation LVH with secondary repolarization abnormality Confirmed by Tavo Duran ([id number]) on 10/28/2018 4:42:14 PM Referred By: Kb rGayson Confirmed By:Tavo Duran
[2018-10-28] MEDS ORDERED: ATORVASTATIN CALCIUM 40 MG TAB PO SCH (19:00)
[2018-10-28] MEDS ORDERED: DUTASTERIDE 0.5 MG CAP PO SCH (19:00)
[2018-10-28] MEDS ORDERED: RIVAROXABAN 20 MG TAB PO SCH (19:00)
[2018-10-28] MEDS ORDERED: ATENOLOL 50 MG TAB PO SCH (19:00)
[2018-10-28] MEDS ORDERED: HYDROCHLOROTHIAZIDE 25 MG TAB PO SCH (19:00)
[2018-10-29] MEDS ORDERED: ASPIRIN EC 325 MG TAB PO SCH (09:00)
[2018-10-29] MEDS ORDERED: CLOPIDOGREL BISULFATE 75 MG TAB PO SCH (09:00)
[2018-10-29 11:19] VITALS: BP 125/84
--- NOTE | 2018-10-29 14:19 | ASDISCHSUM ---
Discharge Information Plan Status:Home with No Needs Medically Cleared to Leave:10/29/2018 Discharge Date:10/29/2018 CM D/C Disposition:Home, Routine, Self-Care ADT D/C Disposition:Home, Routine, Self-Care Projected Discharge Date:10/29/2018 Transportation at D/C: Discharge Delay Reason: Follow-Up Date:10/29/2018 Discharge Slot: Final Diagnosis: Placement Information Patient Contact Information Contact Name:PRE Relationship: Address:[address] Work Phone: City:[facility] Phone: State/Zip Code:[place] [address] Email: Financial Information Financial Class:Medicare Advantage Plans Primary Plan Desc:[employer] MEDICARE Primary Plan Number:[id number] Secondary Plan Desc: Secondary Plan Number: Assessment Information LACE LACE Length of stay for Answers: 1 day current admission Acuity / Level of Answers: No Care: Did the patient have an inpatient admission? Comorbidities - select Answers: Coronary Artery Disease all that apply Other Notes: HTN; AFib # of Emergency department Answers: 1-2 visits in the last 6 months Score: 5 Date Signed: 10/29/2018 02:18 PM Electronically Signed By:Gilma Berman RN Intervention Information
--- NOTE | 2018-10-29 20:37 | GDS ---
[f rep st] DISCHARGE SUMMARY REASON FOR ADMISSION: Coronary artery disease. HOSPITAL COURSE: Please refer to the recent [facility] office note which serves as the admission history for this hospital encounter. Please also refer to Dr. Sammy Pena's diagnostic cardiac alessandro terization report and my interventional catheterization report. Briefly, the patient is a 73-year-ol d male with a history of CAD and previous PCI of the left anterior descending in 2010. He also has a history of atrial fibrillation and experienced a recent episode of syncope. An outpatient cardiac m onitor study demonstrated an episode of wide-complex tachycardia. The electrophysiology service requ ested cardiac catheterization to definitively assess for lesions which might be producing ischemic ve ntricular arrhythmias. His cardiac catheterization demonstrated preserved left ventricular systolic function. The circumflex and its branches were essentially normal in appearance. The RCA had mild i rregularities in its proximal portion. The left anterior descending had mild to moderate non-flow li miting irregularities in its proximal to midportion. The mid LAD had a previously stented segment. The LAD was totally occluded at the distal portion of the stented segment. There were some faint lef t-to-left collaterals supplying the distal LAD. The decision was made to perform PCI of the LAD. Th is was carried out successfully with placement of 2 Synergy drug-coated stents measuring 2.25 x 20 mm and 2.75 x 16 mm. Overnight, the patient has had no cardiac symptoms and no problems at his right f emoral catheterization site. He is stable for discharge. A lipid panel performed during this hospit alization demonstrated a total cholesterol of 131 with HDL 44, LDL 73, and triglycerides 70. RECOMMENDATIONS AND DISPOSITION: The patient is discharged in stable condition. He should continue to follow a heart healthy diet and exercise plan. Please refer to the electronic record for details of his home medications. The only change is the addition of clopidogrel 75 mg daily for the next 12 months. DISCHARGE DIAGNOSES: 1. Coronary artery disease. 2. Successful percutaneous coronary intervention of the left anterior descending using 2 drug-coated stents. /[id number]/MODL
== END 2018-10-29 14:39 | disposition home or self-care (01) ==
LOC: FCATH 06:32 → F2W 10:43
PROVIDERS: ADMIT Internal Medicine Interventional Cardiology; ATTEND Internal Medicine Interventional Cardiology
PROC: 4A023N7 Measurement of Cardiac Sampling and Pressure, Left Heart, Percutaneous Approach (ICD-10-PCS; principal; 2018-10-28)
PROC: 027035Z Dilation of Coronary Artery, One Artery with Two Drug-eluting Intraluminal Devices, Percutaneous Approach (ICD-10-PCS; principal; 2018-10-28)
PROC: B2151ZZ Fluoroscopy of Left Heart using Low Osmolar Contrast (ICD-10-PCS; principal; 2018-10-28)
PROC: B2111ZZ Fluoroscopy of Multiple Coronary Arteries using Low Osmolar Contrast (ICD-10-PCS; principal; 2018-10-28)
DX: T82.855A Stenosis of coronary artery stent, initial encounter (principal); I47.2 Ventricular tachycardia; R55 Syncope and collapse; I25.10 Atherosclerotic heart disease of native coronary artery without angina pectoris; I48.2 Chronic atrial fibrillation
CPT/HCPCS: 93005; 93458; C1725; C1760; C1769; C1874; C1887; C9600; G0378; J0583; J1644; J2250; J3010; Q9967

== ENCOUNTER → 2018-11-06 | Outpatient (CLI) | payer OTHER | LOC: FCATH 15:47 ==

== ENCOUNTER → 2018-11-06 | Outpatient (CLI) | payer OTHER | LOC: CIMAGING 13:16 | PROVIDERS: ATTEND Internal Medicine Cardiovascular Disease | DX: R10.31 Right lower quadrant pain (principal); I97.630 Postprocedural hematoma of a circulatory system organ or structure following a cardiac catheterization | CPT/HCPCS: 76870-PO; 76882-PO ==